=== PATIENT | female | born 1975 | race African-American/Black ===

== ENCOUNTER 2021-08-21 11:21 | Outpatient (REF) | payer MEDICAID, SELFPAY ==
--- NOTE | ~2021-08-21 | XR_ITS ---
EXAMINATION: XR ABDOMEN CLINICAL INFORMATION: Constipation COMPARISON: None TECHNIQUE: Frontal view. FINDINGS: There is increased amount of stool projecting over the distribution of the colon raising suspicion for constipation. There is no evidence of bowel obstruction, however. There is no evidence of abnormal calcifications. There is no acute skeletal structure changes. There is no evidence of small-bowel obstruction. There is no free air in the abdomen. XR/XR KUB IMPRESSION: Increased amount of stool in the colon suggesting constipation. Please correlate with clinical presentation.
== END 2021-08-21 11:22 | disposition home or self-care (01) ==
LOC: HO.XRAY 11:21
PROVIDERS: PCP Internal Medicine; Visit Provider Internal Medicine
DX: K59.01 Slow transit constipation (principal); R10.32 Left lower quadrant pain
CPT/HCPCS: 74018

== ENCOUNTER 2025-03-11 01:46 | Emergency (ER) | payer OTHER, SELFPAY ==
--- NOTE | ~2025-03-11 | CT_ITS ---
CLINICAL HISTORY: Headache; Left Sided Paresthesias CT head without contrast Comparison: None provided Findings: No intra-axial mass, midline shift, hydrocephalus, or acute hemorrhage. There is no sinus or mastoid fluid. The orbits are within normal limits. No skull fracture. IMPRESSION: 1. No acute intracranial findings. This document has been electronically signed by: Dorina Haro MD on 03/11/2025 05:49:06
[2025-03-11 01:49] VITALS: BP 123/76; PULSE 78; RESP 18; TEMP 36.6; O2SAT 98; BMI 33.1
--- NOTE | 2025-03-11 02:03 | ED.NEUROSD ---
HPI - Neuro Symptoms/Deficit General Chief Complaint: Neuro Symptoms/Deficit Stated Complaint: Gen Med Time Seen by Provider: 03/11/25 02:02 Source: patient Mode of arrival: ambulatory Limitations: no limitations History of Present Illness ED Provider: Chu HASSAN HPI Narrative: The patient is a 49-year-old female with history of prediabetes, presenting to the ED for evaluation of left cheek paresthesias that have been occurring over the past 2 weeks. Patient reports 2 weeks ago she experienced an approximate 5-10 second episode of notable atraumatic paresthesias of the left cheek without associated pain. The patient reports symptoms resolved for 1 week, however over the past week she has been experiencing recurrent episodes multiple times throughout the day. The patient reports on Friday 03/09, I in around 15:30 [address] home she developed a more severe episode with the associated pain in the left head with shooting paresthesias into the left cheek, left neck, and left arm. That episode lasted 1-5 minutes and then resolve spontaneously, however patient was concerned enough that she presented to [facility] where she had laboratory evaluation performed. Patient reports she underwent a neurologic exam but did not undergo CT imaging. Patient then waited an extended period of time and after discussion with nursing left without treatment complete as she advises she is currently dog sitting and had to return to the dog. The patient reports she had recurrence of the less severe left cheek tingling today, prompting presentation to this ED. The patient denies associated fever/chills, nausea, vomiting, chest pain, shortness of breath, pleurisy, focal weakness, sustained paresthesias, vision changes, or recent trauma. Related Data Allergies Allergy/AdvReac Type Severity Reaction Status Date / Time cat dander (cats) Allergy Nasal Verified 03/11/25 01:53 congestion diphenhydramine (From Allergy Anaphylaxis Verified 03/11/25 01:53 Benadryl) doxycycline Allergy Gastrointestinal Verified 03/11/25 01:53 Upset shellfish derived (shellfish) Allergy Unknown Verified 03/11/25 01:53 sulfamethoxazole (From Allergy Gastrointestinal Verified 03/11/25 01:53 Bactrim) Upset trimethoprim (From Bactrim) Allergy Gastrointestinal Verified 03/11/25 01:53 Upset Review of Systems Review of Systems: Yes all other systems are reviewed and are negative PMFSH Social History Social History Smoked in Last 30 Days: No Use of substances other than those prescribed or required for medical reasons: No Advance Directives: No Advance Directives Information Provided: Yes Patient : No Physical Exam Vital Signs: Vital Signs: Last Vital Signs Temp 97.7 F 03/11/25 05:45 Pulse 70 03/11/25 05:45 Resp 18 03/11/25 05:45 BP 119/67 03/11/25 05:45 Pulse Ox 98 03/11/25 05:45 O2 Del Method Room Air 03/11/25 05:45 BMI result Body Mass Index 33.1 CONSTITUTIONAL: The patient appears non-toxic, well nourished and in no acute distress. Vital signs as documented. HEAD: Atraumatic, normocephalic. EYES: EOMs intact, pupils equal, round, and reactive to light, conjunctiva clear, no exudate. ENT: Nares patent, no discharge. Airway patent, no audible stridor, visible mucosa is pink and moist without noted lesions. NECK: Trachea is midline, no obvious masses or gross abnormalities. CHEST: Symmetric movement, normal appearance. LUNGS: LS present and CTAB, no w/r/r. Non-labored work of breathing. CARDIAC: Regular Rhythm, S1/S2 appreciated, no murmurs, rubs or gallops. ABDOMEN: Abdomen soft and non-tender x4 quadrants, no palpable masses or organomegaly. : Deferred. EXTREMITIES: Normal tone, moves all extremities spontaneously without reported pain. No obvious acute injury or deformity noted. NEURO: Alert and oriented x3, CN II-XII intact. Cerebellar Functioning intact. Strength 5/5 x4. No sensory or motor deficits. Speech clear and appropriate. PSYCH: normal affect, appropriate eye contact, fluid speech, with appropriate response to questioning. No reported suicidality or homicidality. SKIN: Warm, dry, color appropriate, normal turgor. No rashes noted. Medical Decision Making Medical Decision Making MDM Narrative: 3:46 AM 03/11/2025 (Reyes HASSAN): The patient is a 49-year-old female presenting to the ED for evaluation of recurrent nonsustained episodes of left cheek paresthesias over the past week, as well as 1 episode of sharp occipital parietal left-sided pain radiating to the left cheek with shooting paresthesias into the left arm which occurred on Friday 03/09, patient was seen at [facility], had a unremarkable laboratory workup and returned home. Patient's symptoms recurred prompting ED evaluation today. In the ED the patient is markedly well-appearing, patient reports subjective decreased sensation of the left cheek, no other focal neurological deficits. Remainder of exam is benign. The patient is hemodynamically stable, afebrile, without tenderness to light touch sensation of the occiput or temporal areas, no concern for occipital neuralgia or temporal arteritis. The patient's presentation may be concerning for left-sided trigeminal neuralgia of the middle branch. The patient will be sent for CT head, and basic laboratory evaluation. We will also add on CRP and ESR. Pending unremarkable imaging and laboratory workup patient will likely be safe for discharge to follow up with PCP for further investigation of the source of her symptoms. I received sign-out from my colleague SONYA Gutierrez CT scan does not show any acute abnormality. At this time, patient states that she is completely asymptomatic, does not have any numbness tingling or pain Vitals stable. Patient agrees with plan, she will follow-up with the PCP Differential Diagnosis Differential Diagnoses: The differential diagnosis associated with the presentation includes Admission/Observation Consideration of admission/observation: Escalation of care including admission/observation considered Lab Data 03/11/25 03:03 03/11/25 03:03 Labs: Lab Results 03/11/25 Range/Units 03:03 WBC 5.3 (4.8-10.8) X10*3/uL RBC 4.25 (4.20-5.50) X10*6/uL Hgb 12.2 (12.0-16.0) g/dl Hct 34.9 L (37.0-47.0) % MCV 82.1 (80.0-98.0) fL MCH 28.7 (27.0-33.0) pg MCHC 35.0 (31.0-35.0) g/dl RDW 13.6 (11.0-16.0) % Plt Count 232 (160-400) X10*3/uL MPV 9.0 L (9.4-12.3) fL Immature Gran % (Auto) 0.2 (0.0-0.4) % Neut % (Auto) 51.5 (45-73) % Lymph % (Auto) 35.0 (20-40) % [place] % (Auto) 7.8 (2-11) % Eos % (Auto) 5.1 H (0-4) % Baso % (Auto) 0.4 (0-2) % Lymph # (Auto) 1.8 (1.2-4.9) X10*3/uL [place] # (Auto) 0.4 (0.1-1.2) X10*3/uL Eos # (Auto) 0.3 (0.0-0.4) X10*3/uL Baso # (Auto) 0.0 (0.0-0.2) X10*3/uL Abs Immat Gran (auto) 0.01 (0.00-0.03) X10*3/uL Absolute Neuts (auto) 2.7 (2.0-8.3) x10*3/uL Absolute Nucleated RBC 0.000 (0.0-0.012) X10*3/uL Nucleated RBC % (auto) 0.0 (0.0-0.2) /100WBC ESR 13 (0-20) MM/HR Sodium 143 (135-145) mmol/L Potassium 4.0 (3.3-5.1) mmol/L Chloride 109 H (96-108) mmol/L Carbon Dioxide 27 (22-29) mmol/L Anion Gap 11 L (12-20) BUN 15 (9-16) mg/dL Creatinine 0.73 (0.5-1.4) mg/dL Estim Creat Clear Calc 97.7 Estimated GFR > 60 Random Glucose 110 (60-115) mg/dL Calcium 8.7 (8.4-10.2) mg/dL Total Bilirubin 0.2 (0.0-1.0) mg/dL AST 40 H (5-31) U/L ALT 55 H (0-31) U/L Alkaline Phosphatase 100 (39-117) U/L Troponin I High Sens < 2.7 (<3.5-17.0) ng/L C-Reactive Protein 0.49 (< or = 0.50) mg/dL Total Protein 7.0 (6.5-8.0) g/dL Albumin 4.3 (3.5-5.0) g/dL COVID-19 (LARISSA) Negative (Negative) COVID-19 Clin Com See Note Influenza Type A (ELY) Negative (Negative) Influenza Type B (ELY) Negative (Negative) Influenza A & B Note See Note Discharge Plan Discharge Clinical Impression: Paresthesias Patient Disposition: Home, Self-Care Instructions: Paresthesia (ED) Additional Instructions: Please follow-up with your primary care physician tomorrow. If you have any worsening or new symptoms, please return to the emergency room or call 911 Print Language: Mohawk
--- NOTE | 2025-03-11 02:44 | ECG_ITS ---
Test Reason : CP Blood Pressure : */* mmHG Vent. Rate : 64 BPM Atrial Rate : 64 BPM P-R Int : 178 ms QRS Dur : 80 ms QT Int : 412 ms P-R-T Axes : 30 -6 42 degrees QTcB Int : 425 ms Normal sinus rhythm with sinus arrhythmia Normal ECG No previous ECGs available Referred By: Chu Gutierrez Electronically Signed By: TATIANA GARG MD
--- OUTSIDE RECORDS SUMMARY | 2025-03-11 02:44 | XMS_ITS | Encounter Summary ---
Author Organization [employer] Address [address] [place] [address] Care Team Providers Care Logistics Support Name Role Phone Siva Smith MD Primary Care Provider [phone] Encounter Details Date Type Department Care Team (Latest Contact Info) Description 02/10/2022 Abstract [facility] CONVERSIONS Dental, Provider, DDS Social History Tobacco Use Types Packs/Day Years Used Date Smoking Tobacco: Never Assessed Comments Unknown Sex and Gender Information Value Date Recorded Sex Assigned at Female 05/04/2022 10:35 AM EDT Legal Sex Female 10:35 AM EDT Gender Identity Female 05/04/2022 10:35 AM EDT Sexual Orientation Straight 05/04/2022 10 :35 AM EDT documented as of this encounter Plan of Treatment Not on file documented as of this encounter Visit Diagnoses Not on filedocumented in this encounter Care Teams Logistics Support Relationship Specialty Start Date End Date Siva Smith MD [address] [place] [address] PCP - General Internal Medicine 09/20/18 11/02/23 documented as of this encounter
--- OUTSIDE RECORDS SUMMARY | 2025-03-11 02:44 | XMS_ITS | Encounter Summary ---
Author Organization [employer] Address [address] [facility] [address] [place] [address] Care Team Providers Care Program Services Assistant Name Role Phone Siva Smith MD Primary Care Provider [phone] Encounter Details Date Type Department Care Team (Late st Contact Info) Description 04/27/2023 Abstract [facility] [address] [place] [address] Siva Smith MD [address] [place], [place] [id number] Social History Tobacco Use Types Packs/Day Years [...] on file documented as of this encounter Procedures Procedure Name Priority Date/Time Associated Diagnosis Comments COLONOSCOPY Routine 08/24/2019 documented in this encounter Results * Colonoscopy (08/24/2019) Colonoscopy Normal Normal Narrative Sonal Ponce - 08/24/2019 Repeat in 5 years us Historical Provider HEALTH MAINTENANCE Final Result documented in this encounter Visit Diagnoses Not on filedocumented in this encounter Care Teams Program Services Assistant Relationship Specialty Start Date End Date Siva Smith MD [address] [place] [id number] PCP - General Internal Medicine 09/20/18 11/02/23 documented as of this encounter
--- OUTSIDE RECORDS SUMMARY | 2025-03-11 02:44 | XMS_ITS | Clinical Summary ---
Author Organization [facility] Address [address] [place] [address] Care Team Providers Care Radio Communication Coordinator Name Role Phone Unavailable Primary Care Provider Unavailabl e Social History Tobacco Use Types Packs/Day Years Used Date Smoking Tobacco: Never Assessed Sex and Gender Information Value Date Recorded Sex Assigned at Not on file Gender Identity Not on file Sexual Orientation Not on file Plan of Treatment Health Maintenance Due Date Last Done Comments Hepatitis B Vaccines (1 of 3 - 3-dose series) 1973 Hepatitis C Screening 1973 COVID-19 Vaccine (#1) 1973 Depression Screening 1985 Preventative Health Evaluation 1991 DTap / Tdap / Td (1 - Tdap) 1992 Cervical Cancer Screening (P ap Smear) 1994 Colon Cancer Screening (Colonoscopy) 2018 Breast Cancer Screening (Mammogram) 2023 Shingrix-Zoster Vaccine (1 of 2) 2023 Influenza Vaccine (#1) 2025 Pneumococcal Vaccine Aged Out No long er eligible based on patient's age to complete this topic RSV Ped < 20 months Aged Out No longe r eligible based on patient's age to complete this topic
--- OUTSIDE RECORDS SUMMARY | 2025-03-11 02:44 | XMS_ITS | Clinical Summary ---
Author Organization [employer] Address [address] [place] [address] [address] [place] [address] Care Team Providers Care Test Fixture Designer Name Role Phone Unavailable Primary Care Provider Unavailabl e Social History Tobacco Use Types Packs/Day Years Used Date Smoking Tobacco: Never Assessed Comments Unknown Sex and Gender Information Value Date Recorded Sex Assigned at Female 05/04/2022 10:35 AM EDT Legal Sex Female 10:35 AM EDT Gender Identity Female 05/04/2022 10:35 AM EDT Sexual Orientation Straight 05/04/2022 10 :35 AM EDT Last Filed Vital Signs Vital Sign Reading Time Taken Comments Blood Pressure 112/70 02/02/2022 12:08 AM EDT Pulse 82 02/02/2022 12:08 AM EDT Temperature - - Respiratory Rate - - Oxygen Saturation - - Inhaled Oxygen Concentration - - Weight 79.8 kg (176 lb) 02/02/2022 12:08 AM EDT Height 162.6 cm (5' 4 ) 02/02/2022 12:08 AM EDT Body Mass Index 30.21 02/02/2022 12:08 AM EDT Plan of Treatment Health Maintenance Due Date Last Done Comments CT Colonography 1973 Depression Screening 1973 FIT DNA/Cologuard 1973 FIT 1973 FOBT 1973 Sigmoidoscopy 1973 Disability Screening 1973 Alcohol/Substance Use Screening 1985 Tobacco Screening 1985 Family Planning (PISQ) 1988 Hepatitis B Vaccines (1 of 3 - 19+ 3-dose series) 1992 Pap Smear 1994 Cervical Cancer Screening 2003 HPV/Cotest 2003 Mammogram 2013 Pneumococcal Vaccine: 50+ Years (2 of 2 - PCV) 2023 12/17/2017 Zoster Vaccines (1 of 2) 2023 Colonoscopy 08/24/2024 08/24/2019 Colorectal Cancer Screening 08/24/2024 COVID-19 Vaccine (3 - season) 2025 06/17/2021, 03/28/2021 Influenza Vaccine (#1) 2025 04/02/2023 DTaP/Tdap/Td Vaccines (2 - Td or Tdap) 02/13/2029 02/13/2019, 04/06/2006, 09/04/2005, Additional history exists RSV Patients and Patients Aged 60 years or older (1 - 1-dose 75+ series) 2048 Hepatitis A Vaccines Aged Out 04/22/2009 No long er eligible based on patient's age to complete this topic Meningococcal Vaccine Aged Out 04/30/2009 No charles nicholas eligible based on patient's age to complete this topic HIB Vaccines Aged Out No longer eligi ble based on patient's age to complete this topic HPV Vaccines Aged Out No longer eligi ble based on patient's age to complete this topic IPV Vaccines Aged Out No longer eligi ble based on patient's age to complete this topic Meningococcal B Vaccine Aged Out No l onger eligible based on patient's age to complete this topic RSV under 20 months Aged Out No longe r eligible based on patient's age to complete this topic Rotavirus Vaccines Aged Out No longer eligible based on patient's age to complete this topic Procedures Procedure Name Priority Date/Time Associated Diagnosis Comments COLONOSCOPY Routine 08/24/2019 from Last 3 Months or Most Recently Relevant to Health Maintenance Results * Colonoscopy (08/24/2019) Colonoscopy Normal Normal Narrative Sonal Ponce - 08/24/2019 Repeat in 5 years us Historical Provider MD HEALTH MAINTENANCE Final Result from Last 3 Months or Most Recently Relevant to Health Maintenance
--- OUTSIDE RECORDS SUMMARY | 2025-03-11 02:44 | XMS_ITS | Encounter Summary ---
Author Organization [employer] Address [address] [place] [address] Care Team Providers Care Cable Dispatcher Name Role Phone Siva Smith MD Primary Care Provider [phone] Encounter Details Date Type Department Care Team (Latest Contact Info) Description 10/02/[address] [facility] CONVERSIONS Dental, Provider, DDS Social History Tobacco [...] on filedocumented in this encounter Care Teams Cable Dispatcher Relationship Specialty Start Date End Date Siva Smith MD [address] [place] [address] PCP - General Internal Medicine 09/20/18 11/02/23 documented as of this encounter
--- OUTSIDE RECORDS SUMMARY | 2025-03-11 02:44 | XMS_ITS | Encounter Summary ---
Author Organization [employer] Address [address] [place] [address] Care Team Providers Care Booking Clerk Name Role Phone Siva Smith MD Primary Care Provider [phone] Encounter Details Date Type Department Care Team (Latest Contact Info) Description 04/10/2019 Abstract [facility] CONVERSIONS Dental, Provider, DDS Social History [...] on filedocumented in this encounter Care Teams Booking Clerk Relationship Specialty Start Date End Date Siva Smith MD [address] [place] [address] PCP - General Internal Medicine 09/20/18 11/02/23 documented as of this encounter
[2025-03-11 03:11] LABS: MANUAL DIFF FLAG NO
[2025-03-11 03:13] LABS: Hematocrit 34.9 % (37.0-47.0); Hemoglobin 12.2 g/dl (12.0-16.0); Imm Gran Abs Auto 0.01 X10*3/uL (0.00-0.03); Imm Gran Pct Auto 0.2 % (0.0-0.4); Lymphocytes Absolute Auto 1.8 X10*3/uL (1.2-4.9); Mean Corpuscular HGB Conc 35.0 g/dl (31.0-35.0); Mean Corpuscular Hemoglobin 28.7 pg (27.0-33.0); Mean Corpuscular Volume 82.1 fL (80.0-98.0); NRBC Abs Auto 0.000 X10*3/uL (0.0-0.012); NRBC Pct Auto 0.0 /100WBC (0.0-0.2); Platelet Count 232 X10*3/uL (160-400); Red Blood Count 4.25 X10*6/uL (4.20-5.50); White Blood Count 5.3 X10*3/uL (4.8-10.8)
[2025-03-11 03:33] LABS: Alanine Aminotransferase 55 U/L (0-31); Albumin Level 4.3 g/dL (3.5-5.0); Alkaline Phosphatase 100 U/L (39-117); Anion Gap 11 (12-20); Aspartate Amino Transferase 40 U/L (5-31); Blood Urea Nitrogen 15 mg/dL (9-16); COVID-19 Test Negative (Negative); Calcium 8.7 mg/dL (8.4-10.2); Carbon Dioxide 27 mmol/L (22-29); Chloride 109 mmol/L (96-108); Creatinine Clr Calc Pharmacy 97.7; Estimated Glomerular Filt Rate > 60; IDNOW Serial# 58CA691E; Potassium 4.0 mmol/L (3.3-5.1); Sodium 143 mmol/L (135-145); Total Protein 7.0 g/dL (6.5-8.0)
[2025-03-11 03:38] LABS: Troponin-I High Sensitivity < 2.7 ng/L (<3.5-17.0)
[2025-03-11 03:45] LABS: IDNOW Serial# 55D5AD1C; Influenza B2 Negative (Negative)
[2025-03-11 05:45] VITALS: BP 119/67; PULSE 70; RESP 18; TEMP 36.5; O2SAT 98
[2025-03-11 07:53] VITALS: BP 119/67; PULSE 70; RESP 18; TEMP 36.5; O2SAT 98
== END 2025-03-11 07:56 | disposition home or self-care (01) ==
PROVIDERS: Physician Assistant; Emergency Provider Emergency Medicine
DX: R20.2 Paresthesia of skin (principal); R73.03 Prediabetes
CPT/HCPCS: 36415; 70450; 80053; 84484; 85025; 85652; 86140; 87502; 87635; 93005; 99284; 99285

== ENCOUNTER → 2025-03-11 02:44 | Outpatient (BNV) | payer OTHER, SELFPAY | PROVIDERS: Emergency Provider Emergency Medicine; Visit Provider Internal Medicine Cardiovascular Disease | DX: R07.9 Chest pain, unspecified (principal) | CPT/HCPCS: 93010 ==

== ENCOUNTER → 2025-03-11 03:08 | Outpatient (BNV) | payer OTHER, SELFPAY | PROVIDERS: Emergency Provider Emergency Medicine; Visit Provider Radiology Diagnostic Radiology | DX: R51.9 Headache, unspecified (principal); R20.2 Paresthesia of skin | CPT/HCPCS: 70450 ==